=== PATIENT | male | born 1935 | race Caucasian/White ===

== ENCOUNTER 2016-06-12 11:59 | Emergency (ER) | payer MEDICARE ==
[~2016-06-12] VITALS: Ht 170.2 cm; Wt 80.0 kg
[~2016-06-12 11:59] MED LIST: ACCU-CHEK FASTCLIX L XX; ACCU-CHEK SMARTVIEW XX; ACETAMINOPHEN500 M1 PO; AMLODIPINE5 MG PO; ASPIRIN LOW DOS81 M2 PO; ATENOLOL50 MG PO; AVELOX400 MG PO; B-12500 MC1 PO; B-12500 MC2 PO; B-6100 MG PO; CALCIUM + D600 MG PO; DIGOXIN0.25 MG PO; FERROUS SUL2 PO; FISH OIL1000 MG PO; FOCUS FACTOR PO; FOLIC ACID400 MC1 PO; HYDROXYZINE HCL25 M1 PO; JANTOVEN2.5 MG PO; JANTOVEN5 MG; JANTOVEN5 MG PO; KEFLEX500 MG PO; LISINOPRIL20 MG PO; METFORMIN500 MG PO; MIRTAZAPINE15 MG PO; NADOLOL OR; NADOLOL20 MG PO; OMEPRAZOLE20 MG PO; PRILOSEC20 MG PO; PRILOSEC40 MG PO; SIMVASTATIN40 MG PO; SOTALOL HCL80 M1 PO; TAMSULOSIN0.4 MG PO; VITAMIN C1000 MG PO; VITAMIN D31000 UNI1 PO; WARFARIN SODIUM5 MG PO; WARFARIN2.5 MG PO; [UNRECOGNIZED DRUG - OTHER] OR; [UNRECOGNIZED DRUG - OTHER] PO; [UNRECOGNIZED DRUG - OTHER] XX; [UNRECOGNIZED DRUG - REMARK] XX; [UNRECOGNIZED DRUG - SUPPLY] SC; [UNRECOGNIZED DRUG - SUPPLY] XX
[2016-06-12 12:58] LABS: INTERNATIONAL NORMALIZED RATIO 2.2 RATIO (0.7-1.3)
[2016-06-12] MEDS ORDERED: EC-NAPROSYN500 MG PO (14:35)
[2016-06-12 14:46] VITALS: BP 152/70
== END 2016-06-12 14:53 | disposition home or self-care (01) ==
LOC: ED 11:59
PROVIDERS: Emergency Medicine
DX: S00.31XA Abrasion of nose, initial encounter (principal); S09.90XA Unspecified injury of head, initial encounter; R04.0 Epistaxis; E11.9 Type 2 diabetes mellitus without complications; I48.91 Unspecified atrial fibrillation; I25.2 Old myocardial infarction; W01.0XXA Fall on same level from slipping, tripping and stumbling without subsequent striking against object, initial encounter; Z86.73 Personal history of transient ischemic attack (TIA), and cerebral infarction without residual deficits; Z95.5 Presence of coronary angioplasty implant and graft

== ENCOUNTER 2018-02-04 15:34 | Emergency (ER) | payer MEDICARE ==
[~2018-02-04] VITALS: Ht 170.2 cm; Wt 70.0 kg
[~2018-02-04 15:34] MED LIST changes: +EC-NAPROSYN500 MG PO
[2018-02-04] MEDS ORDERED: DOXYCYCL HYC100 MG PO (16:56)
[2018-02-04 17:20] VITALS: BP 180/100
== END 2018-02-04 17:25 | disposition home or self-care (01) ==
LOC: ED 15:34
DX: S01.452A Open bite of left cheek and temporomandibular area, initial encounter (principal); S61.452A Open bite of left hand, initial encounter; I10 Essential (primary) hypertension; E11.9 Type 2 diabetes mellitus without complications; I48.91 Unspecified atrial fibrillation; E78.5 Hyperlipidemia, unspecified; Z95.0 Presence of cardiac pacemaker; W54.0XXA Bitten by dog, initial encounter; Y93.89 Activity, other specified; Y92.007 Garden or yard of unspecified non-institutional (private) residence as the place of occurrence of the external cause; Z79.01 Long term (current) use of anticoagulants

== ENCOUNTER 2018-04-13 21:51 | Emergency (ER) | payer MEDICARE ==
[~2018-04-13] VITALS: Ht 170.2 cm; Wt 65.0 kg
[~2018-04-13 21:51] MED LIST changes: +DOXYCYCL HYC100 MG PO
[2018-04-13 22:27] LABS: HEMOGLOBIN 11.4 g/dl (14.0-18.0); IMMATURE GRANULOCYTES 0.4 % (0.0-5.0); MEAN CELL VOLUME 81.8 fL CALC (80.0-100.0); MEAN CORPUSCULAR HGB 25.9 pG CALC (26.0-32.0); MEAN CORPUSCULAR HGB CONC 31.7 g/L CALC (32.0-36.0); NEUT# 8.74 thou/uL (1.82-7.42); RED BLOOD COUNT 4.4 mill/uL (4.70-6.10); RED CELL DISTRI WIDTH 15.2 % (11.5-15.5)
[2018-04-13] MEDS ORDERED: MONTELUKAST SOD10 MG PO (22:36)
[2018-04-13] MEDS ORDERED: AMIODARONE200 MG PO (22:37)
[2018-04-13] MEDS ORDERED: METOPROLOL SUCC50 MG PO (22:38)
[2018-04-13] MEDS ORDERED: [UNRECOGNIZED DRUG - OTHER] PO (22:40)
[2018-04-13 22:47] LABS: ALBUMIN 3.8 g/dL (3.2-5.0); BILIRUBIN, TOTAL 0.9 mg/dL (0.0-1.4); CREATININE 1.5 mg/dL (0.7-1.3); POTASSIUM 3.9 mmol/l (3.5-5.1); TOTAL PROTEIN 6.7 g/dL (6.3-8.2)
[2018-04-13 23:11] LABS: INTERNATIONAL NORMALIZED RATIO > 10.0 RATIO (0.7-1.3); PROTHROMBIN TIME 163.3 SECONDS (9.0-12.5)
[2018-04-14 00:21] VITALS: BP 138/63
[2018-04-14 00:34] VITALS: BP 151/68
[2018-04-14 00:53] VITALS: BP 149/68
[2018-04-14 00:58] VITALS: BP 143/74
[2018-04-14 01:15] VITALS: BP 156/77
[2018-04-14 03:08] VITALS: BP 136/91
== END 2018-04-14 03:08 ==
LOC: ED 21:51
PROVIDERS: Emergency Medicine
PROC: 2Y41X5Z Packing of Nasal Region using Packing Material (ICD-10-PCS; principal; 2018-04-14)
PROC: 30233K1 Transfusion of Nonautologous Frozen Plasma into Peripheral Vein, Percutaneous Approach (ICD-10-PCS; 2018-04-14)
PROC: 30233K1 Transfusion of Nonautologous Frozen Plasma into Peripheral Vein, Percutaneous Approach (ICD-10-PCS; 2018-04-14)
DX: R04.0 Epistaxis (principal); T45.515A Adverse effect of anticoagulants, initial encounter; Y92.009 Unspecified place in unspecified non-institutional (private) residence as the place of occurrence of the external cause

== ENCOUNTER 2019-01-02 11:32 | Emergency (ER) | payer MEDICARE ==
[~2019-01-02] VITALS: Ht 170.2 cm; Wt 70.0 kg
[~2019-01-02 11:32] MED LIST changes: +AMIODARONE200 MG PO; +METOPROLOL SUCC50 MG PO; +MONTELUKAST SOD10 MG PO
[2019-01-02] MEDS ORDERED: VITAMIN B-625 MG PO (14:29)
[2019-01-02] MEDS ORDERED: VITAMIN C1000 MG PO (14:29)
[2019-01-02] MEDS ORDERED: VITAMIN D-31000 UNIT PO (14:30)
[2019-01-02 14:41] VITALS: BP 169/88
== END 2019-01-02 14:41 | disposition home or self-care (01) ==
LOC: ED 11:32
DX: S20.222A Contusion of left back wall of thorax, initial encounter (principal); S20.221A Contusion of right back wall of thorax, initial encounter; E11.9 Type 2 diabetes mellitus without complications; I10 Essential (primary) hypertension; I48.91 Unspecified atrial fibrillation; W18.2XXA Fall in (into) shower or empty bathtub, initial encounter; Y93.E1 Activity, personal bathing and showering; Y92.002 Bathroom of unspecified non-institutional (private) residence as the place of occurrence of the external cause; Z95.810 Presence of automatic (implantable) cardiac defibrillator; Z79.4 Long term (current) use of insulin